=== PATIENT | female | born 1970 | race African-American/Black ===

== ENCOUNTER 2022-01-13 10:16 | Emergency (ER) | payer MEDICAID ==
[~2022-01-13] VITALS: Ht 154.9 cm; Wt 54.4 kg
[2022-01-13] MEDS ORDERED: ATOR20TA PO (10:26)
--- NOTE | 2022-01-13 10:36 | NUR ---
physician assessment in progress.
[2022-01-13] MEDS ORDERED: IV NORMAL SALINE 1000 ML BAG IV ONE (10:45)
[2022-01-13] MEDS ORDERED: KETOROLAC TROMETHAMINE 15 MG INJ IVP ONE (10:45)
[2022-01-13 10:53] LABS: *BILIRUBIN,URIN NEGATIVE (NEGATIVE); *BLOOD, URINE NEGATIVE (NEGATIVE); *CLARITY,URINE CLEAR (CLEAR); *COLOR,URINE YELLOW (YELLOW); *KETONES,URINE NEGATIVE (NEGATIVE); *UROBILINOGEN,URINE 0.2 E.U./dl (NORMAL); LEUKOCYTE ESTERASE ,URINE NEGATIVE (NEGATIVE); NITRITE, URINE NEGATIVE (NEGATIVE); UGLUCOSE NEGATIVE (NEGATIVE)
[2022-01-13] MEDS ORDERED: KETOROLAC TROMETHAMINE 15 MG INJ ONE (10:59)
--- NOTE | 2022-01-13 11:03 | NUR ---
PT. taken down for abdominal CT.
[2022-01-13 11:04] LABS: *URINE HCG, QUAL NEG (NEGATIVE)
[2022-01-13 11:07] LABS: HEMATOCRIT 38.1 % (31.2-41.9); MEAN CORPUSCULAR HEMOGLOBIN 30.7 uug (24.7-32.8); PLATELET COUNT (AUTO) 116 K/uL (179-408)
[2022-01-13 11:09] LABS: CREATININE 0.8 mg/dL (0.6-1.3); POTASSIUM 3.6 mmol/L (3.5-5.1)
--- NOTE | 2022-01-13 11:11 | NUR ---
Pt. back from CT.
[2022-01-13 11:15] LABS: BILIRUBIN,DIRECT 0.1 mg/dL (0.0-0.2); BILIRUBIN,TOTAL 0.3 mg/dL (0.2-1.0); TOTAL PROTEIN, SERUM 7.2 g/dL (6.4-8.2)
[2022-01-13] MEDS ORDERED: IBUP-1955 PO (11:49)
[2022-01-13 11:54] VITALS: BP 130/77
--- NOTE | 2022-01-13 12:14 | NUR ---
DCD instructions given to pt. who verbalized understanding. pt. left room ambulatory steady gait.
== END 2022-01-13 12:15 | disposition home or self-care (01) ==
LOC: ER 10:16
DX: M54.50 Low back pain, unspecified (principal); R10.30 Lower abdominal pain, unspecified; K76.89 Other specified diseases of liver; E78.5 Hyperlipidemia, unspecified; R73.03 Prediabetes; Z87.440 Personal history of urinary (tract) infections; Z79.899 Other long term (current) drug therapy; D25.9 Leiomyoma of uterus, unspecified
CPT/HCPCS: 36415; 74176; 80048; 80076; 81003; 83690; 84703; 85025; 96374; 99284; J1885; A4663; J7030